=== PATIENT | male | born 1960 | race Caucasian/White ===

== ENCOUNTER 2016-09-30 13:22 | Emergency (ER) | payer OTHER ==
[~2016-09-30] VITALS: Ht 177.8 cm; Wt 80.0 kg
[2016-09-30 13:24] VITALS: BP 132/77; PULSE 92; RESP 20; TEMP 97.8; O2SAT 96
--- NOTE | 2016-09-30 13:29 | PD ---
Physical Exam Time Seen by Provider: 13:25 Narrative 56 y/o male here for evaluation of hallucinations per the . Started 2 days ago. He says insects went into his nose and he reports seeing a man who he did not know sitting in his wifes chair. Vital signs reviewed. Seen at triage desk, awaiting bed placement. Data Data Last Documented VS Vital Signs Date Time Temp Pulse Resp B/P Pulse Ox O2 Delivery O2 Flow Rate FiO2 09/30/16 13:24 97.8 92 20 132/77 96 Room Air [facility] Medical Record Reviewed: Yes Supervised Visit with LYNNE: Cy Hanks September 30, 2016 13:29
[2016-09-30] MEDS ORDERED: OMEP20TA PO (14:02)
[2016-09-30] MEDS ORDERED: GABA100C4 PO (14:02)
[2016-09-30] MEDS ORDERED: HYDR25TA5 PO (14:02)
[2016-09-30] MEDS ORDERED: CYCL1TAB29 PO (14:02)
[2016-09-30] MEDS ORDERED: PRAV40TA2 PO (14:02)
[2016-09-30] MEDS ORDERED: BACL20TA PO (14:02)
[2016-09-30] MEDS ORDERED: TRAM50TA PO (14:02)
[2016-09-30] MEDS ORDERED: PROP20TA3 PO (14:03)
[2016-09-30 14:04] LABS: AUTOMATED NEUTROPHIL # 4.5 TH/MM3 (1.8-7.7); BASOPHIL % 0.4 % (0.0-2.0); EOSINOPHIL # 0.1 TH/MM3 (0-0.4); EOSINOPHIL % 1.7 % (0.0-4.0); HEMATOCRIT 38.7 % (39.0-51.0); LYMPH % 20.5 % (9.0-44.0); LYMPHOCYTE # 1.4 TH/MM3 (1.0-4.8); MEAN CELL VOLUME 95.8 FL (80.0-100.0); MEAN CORPUSCULAR HEMOGLOBIN 32.6 PG (27.0-34.0); MEAN CORPUSCULAR HGB CONC 34.1 % (32.0-36.0); MONO % 13.2 % (0.0-8.0); NEUT % 64.2 % (16.0-70.0); PLATELET COUNT 98 TH/MM3 (150-450); RED BLOOD COUNT 4.04 MIL/MM3 (4.50-5.90); RED CELL DISTRIBUTION WIDTH 15.4 % (11.6-17.2); WHITE BLOOD COUNT 6.9 TH/MM3 (4.0-11.0)
[2016-09-30] MEDS ORDERED: RA BTAB PO (14:05)
[2016-09-30] MEDS ORDERED: VITA100064 PO (14:05)
[2016-09-30 14:07] LABS: HEMO FLAGS AUTO DIFF
[2016-09-30 14:31] LABS: BLOOD, URINE TRACE (NEG); COMMENT (UR) CULTURE INDICATED; CULTURE IF INDICATED CULTURE INDICATED; GLUCOSE,URINE NEG (NEG); HYALINE CAST, URINE 3 /lpf (RARE); KETONE, URINE 10 mg/dL (NEG); MUCUS URINE FEW /lpf (OCC); NITRITE,URINE NEG (NEG); PH, URINE 5.5 (5.0-8.5); SQUAMOUS EPITHELIAL CELL URINE 2 /hpf (0-5); TRANSITIONAL EPI CELLS, URINE 1 /hpf; URINE COLOR YELLOW (YELLW/STRAW)
[2016-09-30 14:36] LABS: AMPHETAMINE, URINE NEG (NEG); BARBITURATES, URINE NEG (NEG); COCAINE, URINE NEG (NEG)
[2016-09-30 14:37] LABS: PLATELET ESTIMATE SMEAR LOW (NORMAL); PLATELET MORPHOLOGY NORMAL (NORMAL); SCAN/DIFF AUTO DIFF CONFIRMED
[2016-09-30 14:47] LABS: ALKALINE PHOSPHATASE 104 U/L (45-117); ALT (GPT) 92 U/L (12-78); ANION GAP 14 MEQ/L (5-15); AST (GOT) 121 U/L (15-37); BICARBONATE 25.6 MEQ/L (21.0-32.0); BLOOD UREA NITROGEN 25 MG/DL (7-18); CHLORIDE 90 MEQ/L (98-107); GLOMERULAR FILTRATION RATE 81 ML/MIN (>89); SODIUM (NA) 130 MEQ/L (136-145); TOTAL BILIRUBIN ADULT 1.1 MG/DL (0.2-1.0)
[2016-09-30 14:48] LABS: ACETAMINOPHEN LESS THAN 2.0 MCG/ML (10.0-30.0)
[2016-09-30 14:49] LABS: POTASSIUM 2.7 MEQ/L (3.5-5.1)
[2016-09-30] MEDS ORDERED: SODIUM CHLOR 0.9% 1000 ML INJ 1,000 ML IV ONE (15:00)
[2016-09-30] MEDS ORDERED: POTASSIUM CHLOR 20 MEQ PREMIX 100 ML IV SCH (15:00)
[2016-09-30] MEDS ORDERED: POTASSIUM CHLORIDE 20 MEQ CONTROLLED RELEASE TAB PO ONE (15:15)
--- NOTE | 2016-09-30 15:17 | PD ---
HPI Chief Complaint: Psychiatric Symptoms Time Seen by Provider: 13:30 Travel History International Travel<30 days: No Contact w/Intl Traveler<30days: No Traveled to known affect area: No History of Present Illness HPI Patient is a 56-year-old male presenting to the emergency department voluntarily due to visual hallucinations. He states that on Monday night patient saw someone sitting in his house was having a conversation with that imaginary person per his . Saw people breaking into his car states that the car was not broken into. Patient also reports seeing bugs, he reports bugs crawling into his "orifices". He reports seeing eggs and when they corey, bugs crawl out that look like spiders. Patient has not taken any new medications, he denies any illicit drug use. His states he has been more anxious recently and is been under more stress at the fear of losing his job coming in to the year. He admitted to occasional alcohol use drinking a few beers a day. PFSH Past Medical History Diminished Hearing: No Hypertension: Yes Musculoskeletal: Yes (DEGERNERATIVE DISC DX) Tetanus Vaccination: < 5 Years Influenza Vaccination: Yes Past Surgical History Surgical History: No Previous Surgery Social History Alcohol Use: Yes (FEW X WEEKLY) Tobacco Use: No Substance Use: No Allergies-Medications (Allergen,Severity, Reaction): Coded Allergies: No Known Allergies (Unverified , 09/30/16) Reported Meds & Prescriptions Reported Meds & Active Scripts Active Reported Vitamin D (Cholecalciferol) 1,000 Unit Tab 1,000 Units PO DAILY B Complex (Vitamin B Complex) 1 Each Tablet 1 Tab PO DAILY Propranolol (Propranolol HCl) 20 Mg Tab 20 Mg PO Q12HR Omeprazole 20 Mg Tab 20 Mg PO BID Baclofen 20 Mg Tab 20 Mg PO TID Flexeril (Cyclobenzaprine HCl) 10 Mg Tab 10 Mg PO HS Hydrochlorothiazide 25 Mg Tab 25 Mg PO DAILY Gabapentin 100 Mg Cap 300 Mg PO TID Pravastatin 40 Mg Tab 40 Mg PO HS Tramadol (Tramadol HCl) 50 Mg Tab 50 Mg PO Q8H PRN Review of Systems Except as stated in HPI: all other systems reviewed are Neg Psychiatric: Positive: Anxiety, Mood Disorder Physical Exam Narrative GENERAL: Well-developed, well-nourished, alert male. Resting comfortably in no acute distress. at bedside. SKIN: Focused skin assessment warm/dry. HEAD: Atraumatic. Normocephalic. EYES: Pupils equal and round. No scleral icterus. No injection or drainage. ENT: No nasal bleeding or discharge. Mucous membranes pink and moist. NECK: Trachea midline. No JVD. CARDIOVASCULAR: Regular rate and rhythm. No murmur appreciated. RESPIRATORY: No accessory muscle use. Clear to auscultation. Breath sounds equal bilaterally. GASTROINTESTINAL: Abdomen soft, non-tender, nondistended. Hepatic and splenic margins not palpable. MUSCULOSKELETAL: No obvious deformities. No clubbing. No cyanosis. No edema. NEUROLOGICAL: Awake and alert. No obvious cranial nerve deficits. Motor grossly within normal limits. Normal speech. PSYCHIATRIC: Appropriate mood and affect; insight and judgment normal. Data Data Last Documented VS Vital Signs Date Time Temp Pulse Resp B/P Pulse Ox O2 Delivery O2 Flow Rate FiO2 09/30/16 13:24 97.8 92 20 132/77 96 Room Air Orders Complete Blood Count With Diff (09/30/16 13:32) Comprehensive Metabolic Panel (09/30/16 13:32) Urinalysis - C+S If Indicated (09/30/16 13:32) Psych Screen (09/30/16 13:32) Drug Screen, Random Urine (09/30/16 13:32) Alcohol (Ethanol) (09/30/16 13:32) Salicylates (Aspirin) (09/30/16 13:32) Tylenol (Acetaminophen) (09/30/16 13:32) Ct Brain W/O Iv Contrast(Rout) (09/30/16 ) Urine Culture (09/30/16 14:20) Sodium Chlor 0.9% 1000 Ml Inj (Ns 1000 M (09/30/16 15:00) Potassium Chloride (Kcl) (09/30/16 15:15) Ammonia (09/30/16 15:42) Mri Brain W&W/O Contrast (09/30/16 ) Mra Brain W/O Contrast (Cow) (09/30/16 ) Gadodiamide Pf Inj (Omniscan Pf Inj) (09/30/16 16:59) Ceftriaxone Inj (Rocephin Inj) (09/30/16 17:15) Labs Laboratory Tests Test 09/30/16 09/30/16 09/30/16 13:50 14:20 15:55 White Blood Count 6.9 TH/MM3 Red Blood Count 4.04 MIL/MM3 Hemoglobin 13.2 GM/DL Hematocrit 38.7 % Mean Corpuscular Volume 95.8 FL Mean Corpuscular Hemoglobin 32.6 PG Mean Corpuscular Hemoglobin 34.1 % Concent Red Cell Distribution Width 15.4 % Platelet Count 98 TH/MM3 Mean Platelet Volume 8.1 FL Neutrophils (%) (Auto) 64.2 % Lymphocytes (%) (Auto) 20.5 % Monocytes (%) (Auto) 13.2 % Eosinophils (%) (Auto) 1.7 % Basophils (%) (Auto) 0.4 % Neutrophils # (Auto) 4.5 TH/MM3 Lymphocytes # (Auto) 1.4 TH/MM3 Monocytes # (Auto) 0.9 TH/MM3 Eosinophils # (Auto) 0.1 TH/MM3 Basophils # (Auto) 0.0 TH/MM3 CBC Comment AUTO DIFF Differential Comment AUTO DIFF CONFIRMED Platelet Estimate LOW Platelet Morphology Comment NORMAL Sodium Level 130 MEQ/L Potassium Level 2.7 MEQ/L Chloride Level 90 MEQ/L Carbon Dioxide Level 25.6 MEQ/L Anion Gap 14 MEQ/L Blood Urea Nitrogen 25 MG/DL Creatinine 0.96 MG/DL Estimat Glomerular Filtration 81 ML/MIN Rate Random Glucose 111 MG/DL Calcium Level 9.3 MG/DL Total Bilirubin 1.1 MG/DL Aspartate Amino Transf 121 U/L (AST/SGOT) Alanine Aminotransferase 92 U/L (ALT/SGPT) Alkaline Phosphatase 104 U/L Total Protein 7.7 GM/DL Albumin 4.3 GM/DL Salicylates Level LESS THAN 1.7 MG/DL Acetaminophen Level LESS THAN 2.0 MCG/ML Ethyl Alcohol Level 36 MG/DL Urine Color YELLOW Urine Turbidity HAZY Urine pH 5.5 Urine Specific [place] 1.021 Urine Protein TRACE mg/dL Urine Glucose (UA) NEG mg/dL Urine Ketones 10 mg/dL Urine Occult Blood TRACE Urine Nitrite NEG Urine Bilirubin NEG Urine Urobilinogen LESS THAN 2.0 MG/DL Urine Leukocyte Esterase MOD Urine RBC 3 /hpf Urine WBC 14 /hpf Urine Squamous Epithelial 2 /hpf Cells Urine Transitional Epithelial 1 /hpf Cells Urine Hyaline Casts 3 /lpf Urine Mucus FEW /lpf Microscopic Urinalysis Comment CULTURE INDICATED Urine Opiates Screen NEG Urine Barbiturates Screen NEG Urine Amphetamines Screen NEG Urine Benzodiazepines Screen POS Urine Cocaine Screen NEG Urine Cannabinoids Screen NEG Ammonia 30 MCMOL/L MDM Medical Decision Making Medical Screen Exam Complete: Yes Emergency Medical Condition: Yes Interpretation(s) Last Impressions Head Magnetic Resonance Angiography 09/30/16 0000 Signed Impressions: Service Date/Time: Friday, September 30, 2016 16:11 - CONCLUSION: No acute [place] vascular findings Micha Campbell MD Head CT 09/30/16 0000 Signed Impressions: Service Date/Time: Friday, September 30, 2016 15:02 - CONCLUSION: 1. Low attenuation left temporal lobe could be infarct or artifact. 2. Otherwise unremarkable CT brain. Theodore Mukherjee MD Brain MRI 09/30/16 0000 Signed Impressions: Service Date/Time: Friday, September 30, 2016 16:11 - CONCLUSION: Normal examination. Micha Campbell MD Laboratory Tests Test 09/30/16 09/30/16 09/30/16 13:50 14:20 15:55 White Blood Count 6.9 TH/MM3 Red Blood Count 4.04 MIL/MM3 Hemoglobin 13.2 GM/DL Hematocrit 38.7 % Mean Corpuscular Volume 95.8 FL Mean Corpuscular Hemoglobin 32.6 PG Mean Corpuscular Hemoglobin 34.1 % Concent Red Cell Distribution Width 15.4 % Platelet Count 98 TH/MM3 Mean Platelet Volume 8.1 FL Neutrophils (%) (Auto) 64.2 % Lymphocytes (%) (Auto) 20.5 % Monocytes (%) (Auto) 13.2 % Eosinophils (%) (Auto) 1.7 % Basophils (%) (Auto) 0.4 % Neutrophils # (Auto) 4.5 TH/MM3 Lymphocytes # (Auto) 1.4 TH/MM3 Monocytes # (Auto) 0.9 TH/MM3 Eosinophils # (Auto) 0.1 TH/MM3 Basophils # (Auto) 0.0 TH/MM3 CBC Comment AUTO DIFF Differential Comment AUTO DIFF CONFIRMED Platelet Estimate LOW Platelet Morphology Comment NORMAL Sodium Level 130 MEQ/L Potassium Level 2.7 MEQ/L Chloride Level 90 MEQ/L Carbon Dioxide Level 25.6 MEQ/L Anion Gap 14 MEQ/L Blood Urea Nitrogen 25 MG/DL Creatinine 0.96 MG/DL Estimat Glomerular Filtration 81 ML/MIN Rate Random Glucose 111 MG/DL Calcium Level 9.3 MG/DL Total Bilirubin 1.1 MG/DL Aspartate Amino Transf 121 U/L (AST/SGOT) Alanine Aminotransferase 92 U/L (ALT/SGPT) Alkaline Phosphatase 104 U/L Total Protein 7.7 GM/DL Albumin 4.3 GM/DL Salicylates Level LESS THAN 1.7 MG/DL Acetaminophen Level LESS THAN 2.0 MCG/ML Ethyl Alcohol Level 36 MG/DL Urine Color YELLOW Urine Turbidity HAZY Urine pH 5.5 Urine Specific [place] 1.021 Urine Protein TRACE mg/dL Urine Glucose (UA) NEG mg/dL Urine Ketones 10 mg/dL Urine Occult Blood TRACE Urine Nitrite NEG Urine Bilirubin NEG Urine Urobilinogen LESS THAN 2.0 MG/DL Urine Leukocyte Esterase MOD Urine RBC 3 /hpf Urine WBC 14 /hpf Urine Squamous Epithelial 2 /hpf Cells Urine Transitional Epithelial 1 /hpf Cells Urine Hyaline Casts 3 /lpf Urine Mucus FEW /lpf Microscopic Urinalysis Comment CULTURE INDICATED Urine Opiates Screen NEG Urine Barbiturates Screen NEG Urine Amphetamines Screen NEG Urine Benzodiazepines Screen POS Urine Cocaine Screen NEG Urine Cannabinoids Screen NEG Ammonia 30 MCMOL/L Vital Signs Date Time Temp Pulse Resp B/P Pulse Ox O2 Delivery O2 Flow Rate FiO2 09/30/16 13:24 97.8 92 20 132/77 96 Room Air Differential Diagnosis Substance abuse versus delirium versus intoxication versus CVA versus other Narrative Course Patient's 56-year-old male presenting to the emergency room for evaluation of hallucinations and has been ongoing for the last 48 hours per his 's report. Labs and imaging were ordered and pending. Initial CT scan showed a low attenuation a left temporal lobe which could be infarct or artifact, MRI and MRA of the brain was ordered. CBC is unremarkable Chemistry with potassium of 2.7. Patient was given 80 mEq by mouth replacement. Sodium 130, patient given 1 L IV fluids. Mild transaminitis noted , ammonia 30, alcohol level is 36 Urine drug screen is positive for benzodiazepines. Urinalysis is indicative of urinary tract infection, reflux culture pending. Patient given Rocephin IV in the emergency department. He'll be provided with a prescription for Keflex for use at home should he be discharged from psych. Patient is likely ingesting more alcohol than he reports. Patient is medically clear for psychiatric evaluation at this time. Diagnosis Primary Impression: Medical clearance for psychiatric admission Additional Impressions: Urinary tract infection Qualified Code: N39.0 - Urinary tract infection without hematuria, site unspecified Alcohol intoxication Qualified Code: F10.920 - Alcohol intoxication, uncomplicated Hallucinations Med/Other Pt SpecificInfo: Prescription(s) given Scripts Cephalexin 500 Mg [id number] Mg PO Q8HR 10 Days Ref 0 Prov:Melody Kim 09/30/16 Condition: Stable Melody Kim September 30, 2016 15:17
--- NOTE | 2016-09-30 15:38 | RADRPT ---
EXAM DATE/TIME: 09/30/2016 15:02 [facility] COMPARISON: No previous studies available for comparison. INDICATIONS : Altered mental status. RADIATION DOSE: 48.66 CTDIvol (mGy) MEDICAL HISTORY : Hypertension. SURGICAL HISTORY : None. ENCOUNTER: Initial ACUITY: 1 day PAIN SCALE: 0/10 LOCATION: cranial TECHNIQUE: Multiple contiguous axial images were obtained of the head. Using automated exposure control and adj ustment of the mA and/or kV according to patient size, radiation dose was kept as low as reasonably a chievable to obtain optimal diagnostic quality images. FINDINGS: CEREBRUM: Low-attenuation left temporal lobe. The ventricles are normal for age. No evidence of midline shift, mass lesion, hemorrhage or acute infarction. No extra-axial fluid collections are seen. POSTERIOR FOSSA: The cerebellum and brainstem are intact. The 4th ventricle is midline. The cerebellopontine angle i s unremarkable. EXTRACRANIAL: The visualized portion of the orbits is intact. SKULL: The calvaria is intact. No evidence of skull fracture. CONCLUSION: 1. Low attenuation left temporal lobe could be infarct or artifact. 2. Otherwise unremarkable CT brain. Theodore Mukherjee MD on September 30, 2016 at 15:35 Board Certified Radiologist. This report was verified electronically.
[2016-09-30] MEDS ORDERED: GADODIAMIDE PF 287 MG/ML 20 ML VIAL (for RAD MRI) IV ONE (16:59)
--- NOTE | 2016-09-30 16:59 | RADRPT ---
EXAM DATE/TIME: 09/30/2016 16:11 [facility] COMPARISON: No previous studies available for comparison. INDICATIONS : Altered mental status. Hallucinations. CONTRAST: 16 cc Omniscan (gadodiamide) IV MEDICAL HISTORY : Hypertension. SURGICAL HISTORY : None. ENCOUNTER: Initial ACUITY: 2 day PAIN SCORE: 0/10 LOCATION: head TECHNIQUE: Multiplanar, multisequence MRI of the brain was performed both prior to and following the administrat ion of paramagnetic contrast. FINDINGS: CEREBRUM: The ventricles are normal for age. No evidence of midline shift, mass lesion, hemorrhage or acute in farction. No extraaxial fluid collections are seen. The pituitary gland and suprasellar cistern are normal in configuration. WHITE MATTER: No significant signal abnormalities are seen in the white matter. POSTERIOR FOSSA: The cerebellum and brainstem are intact. The 4th ventricle is midline. The cerebellopontine angle is unremarkable. The cerebellar tonsils are normal in position. DIFFUSION IMAGING: No focal areas of restricted diffusion are seen. No evidence of acute infarction. EXTRACRANIAL: The visualized portions of the orbits and paranasal sinuses are unremarkable. POST-CONTRAST: No abnormal areas of parenchymal or dural enhancement. No evidence of blood-brain barrier breakdown. CONCLUSION: Normal examination. Micha Campbell MD on September 30, 2016 at 16:55 Board Certified Radiologist. This report was verified electronically.
--- NOTE | 2016-09-30 17:01 | RADRPT ---
EXAM DATE/TIME: 09/30/2016 16:11 [facility] COMPARISON: No previous studies available for comparison. INDICATIONS : Altered mental status. MEDICAL HISTORY : Hypertension. SURGICAL HISTORY : None. ENCOUNTER: Initial ACUITY: 2 day PAIN SCORE: 0/10 LOCATION: head Please note a normal MRA of the brain does not entirely exclude the possibility of a small aneurysm, nor the possibility of distal intracranial vessel disease. TECHNIQUE: 3D time of flight MRA was performed. Source images, multiplanar STS MIP, and 3D volume MIP reconstru ctions were reviewed. FINDINGS: The A1 segment of right anterior cerebral artery is hypoplastic. The left posterior cerebral artery a rises in fashion. There is no evidence of major vessel occlusion or stenosis. No aneurysm or va scular malformation is identified. CONCLUSION: No acute [place] of [place] vascular findings Micha Campbell MD on September 30, 2016 at 16:58 Board Certified Radiologist. This report was verified electronically.
[2016-09-30] MEDS ORDERED: cefTRIAXone INJ 1,000 MG in SODIUM CHLORIDE 0.9% INJ 100 ML IV ONE (17:15)
[2016-09-30] MEDS ORDERED: CEPH500T PO (17:20)
[2016-09-30 18:57] VITALS: BP 113/73; PULSE 108; RESP 18; O2SAT 98
[2016-09-30 23:28] VITALS: BP 117/69; PULSE 101; RESP 16; TEMP 98.7; O2SAT 96
[2016-10-01 04:23] VITALS: BP 124/72; PULSE 96; RESP 16; O2SAT 98
[2016-10-01 06:15] VITALS: BP 118/62; PULSE 89; RESP 16; O2SAT 97
--- NOTE | 2016-10-01 10:42 | PD ---
History of Present Illness Chief Complaint: Psychiatric Symptoms Time Seen by Provider: 10:20 Travel History International Travel<30 Days: No Contact w/Intl Traveler<30days: No Known affected area: No Legal Status Legal Status: Voluntary History of Present Illness: History of Present Illness HPI Patient is a 56-year-old male with no previous psychiatric history who presents to the emergency department voluntarily for a psychiatric evaluation. Documentation from ED provider is as follows " He states that on Monday night he saw someone sitting in his house and was observed having having a conversation with that imaginary person per his . He also saw people breaking into his car states that the car was not broken into. On night he also reports seeing bugs which are like moths with blue eyes that go into his nose, laying eggs and when they corey, bugs crawl out that look like spiders, saw a black family in his garage. EMR is reviewed. No previous psychiatric history. Current toxicology is positive for benzodiazepines which he denies any use of in the last year. BAL of 36 and he admits to having had a drink as well as having " a few beers per day". . Current MRI and CT scans are negative. Positive for hypokalemia as well as for UTI. Patient is seen in main ed. He is sleeping but arouses with verbal prompting. He is oriented x 4, calm and cooperative. Speech is clear and logical, goal directed, normal for tone, rate. There is no farzana or hypomania. Mood is mildly anxious. Acknowledges some worry over possibly being out of a job within the next year. There is no hallucinations reported at this time and he does not appear to be responding to internal stimuli.There is no suicidal or homicidal ideation. He reports that the hallucinations started after he took some Tramadol. Telephone call to his with his verbal permission at [phone]. She confirms that the patient does not have any previous psychiatric history. She does state that he had a problem with alcohol a few years back and that it affected his work but to her knowledge he has not been drinking. She will be picking him up if he is discharged. PFSH Past Medical History Diminished Hearing: No Hypertension: Yes Musculoskeletal: Yes (DEGERNERATIVE DISC DX) Tetanus Vaccination: < 5 Years Influenza Vaccination: Yes Past Surgical History Surgical History: No Previous Surgery Psychiatric History Psychiatric History Hx Psychiatric Treatment: denies History of Inpatient Treatment: No Guns or firearms in home: No Social History male. Lives with his . Works in housekeeping. Hx Alcohol Use: Yes (FEW X WEEKLY) Hx Tobacco Use: No Hx Substance Use: No Substance Use Type: Alcohol Hx of Substance Use Treatment: No Family Psychiatric History Negative Allergies-Medications (Allergen,Severity, Reaction): Coded Allergies: No Known Allergies (Unverified , 09/30/16) Reported Meds & Prescriptions Reported Meds & Active Scripts Active Cephalexin 500 Mg Tab 500 Mg PO Q8HR 10 Days Reported Vitamin D (Cholecalciferol) 1,000 Unit Tab 1,000 Units PO DAILY B Complex (Vitamin B Complex) 1 Each Tablet 1 Tab PO DAILY Propranolol (Propranolol HCl) 20 Mg Tab 20 Mg PO Q12HR Omeprazole 20 Mg Tab 20 Mg PO BID Baclofen 20 Mg Tab 20 Mg PO TID Flexeril (Cyclobenzaprine HCl) 10 Mg Tab 10 Mg PO HS Hydrochlorothiazide 25 Mg Tab 25 Mg PO DAILY Gabapentin 100 Mg Cap 300 Mg PO TID Pravastatin 40 Mg Tab 40 Mg PO HS Tramadol (Tramadol HCl) 50 Mg Tab 50 Mg PO Q8H PRN Review of Systems Except as stated in HPI: all other systems reviewed are Neg Musculoskeletal: COMPLAINS OF: Back pain Psychiatric: COMPLAINS OF: Anxiety MDM Medical Decision Making Medical Record Reviewed: Yes Assessment/Plan 56 year old male on a voluntary status who reports visual hallucinations as well as believing that moths were crawling into his nostrils, seeing people in his garage since . He is not experiencing any of these at this time. The patient has been medically cleared with positive finding of UTI as well as hypokalemia. All other studies are negative. At this time differential diagnosis include delirium. he denies that he has been drinking in excess or using any other substance. . Cleared from psychiatry for discharge. Discussed with his if any increase in symptoms or return of symptoms to return to [facility]. Orders Complete Blood Count With Diff (09/30/16 13:32) Comprehensive Metabolic Panel (09/30/16 13:32) Urinalysis - C+S If Indicated (09/30/16 13:32) Psych Screen (09/30/16 13:32) Drug Screen, Random Urine (09/30/16 13:32) Alcohol (Ethanol) (09/30/16 13:32) Salicylates (Aspirin) (09/30/16 13:32) Tylenol (Acetaminophen) (09/30/16 13:32) Ct Brain W/O Iv Contrast(Rout) (09/30/16 ) Urine Culture (09/30/16 14:20) Sodium Chlor 0.9% 1000 Ml Inj (Ns 1000 M (09/30/16 15:00) Potassium Chloride (Kcl) (09/30/16 15:15) Ammonia (09/30/16 15:42) Mri Brain W&W/O Contrast (09/30/16 ) Mra Brain W/O Contrast (Cow) (09/30/16 ) Gadodiamide Pf Inj (Omniscan Pf Inj) (09/30/16 16:59) Ceftriaxone Inj (Rocephin Inj) (09/30/16 17:15) Diet Regular Basic (09/30/16 Dinner) Results Vital Signs Date Time Temp Pulse Resp B/P Pulse Ox O2 Delivery O2 Flow Rate FiO2 10/01/16 06:15 89 16 118/62 97 Room Air 10/01/16 04:23 96 16 124/72 98 Room Air 09/30/16 23:28 98.7 101 16 117/69 96 09/30/16 18:57 108 18 113/73 98 Room Air 09/30/16 13:24 97.8 92 20 132/77 96 Room Air Laboratory Tests Test 09/30/16 09/30/16 09/30/16 13:50 14:20 15:55 White Blood Count 6.9 Red Blood Count 4.04 Hemoglobin 13.2 Hematocrit 38.7 Mean Corpuscular Volume 95.8 Mean Corpuscular Hemoglobin 32.6 Mean Corpuscular Hemoglobin 34.1 Concent Red Cell Distribution Width 15.4 Platelet Count 98 Mean Platelet Volume 8.1 Neutrophils (%) (Auto) 64.2 Lymphocytes (%) (Auto) 20.5 Monocytes (%) (Auto) 13.2 Eosinophils (%) (Auto) 1.7 Basophils (%) (Auto) 0.4 Neutrophils # (Auto) 4.5 Lymphocytes # (Auto) 1.4 Monocytes # (Auto) 0.9 Eosinophils # (Auto) 0.1 Basophils # (Auto) 0.0 CBC Comment AUTO DIFF Differential Comment AUTO DIFF CONFIRMED Platelet Estimate LOW Platelet Morphology Comment NORMAL Sodium Level 130 Potassium Level 2.7 Chloride Level 90 Carbon Dioxide Level 25.6 Anion Gap 14 Blood Urea Nitrogen 25 Creatinine 0.96 Estimat Glomerular Filtration 81 Rate Random Glucose 111 Calcium Level 9.3 Total Bilirubin 1.1 Aspartate Amino Transf 121 (AST/SGOT) Alanine Aminotransferase 92 (ALT/SGPT) Alkaline Phosphatase 104 Total Protein 7.7 Albumin 4.3 Salicylates Level LESS THAN 1.7 Acetaminophen Level LESS THAN 2.0 Ethyl Alcohol Level 36 Urine Color YELLOW Urine Turbidity HAZY Urine pH 5.5 Urine Specific [place] 1.021 Urine Protein TRACE Urine Glucose (UA) NEG Urine Ketones 10 Urine Occult Blood TRACE Urine Nitrite NEG Urine Bilirubin NEG Urine Urobilinogen LESS THAN 2.0 Urine Leukocyte Esterase MOD Urine RBC 3 Urine WBC 14 Urine Squamous Epithelial 2 Cells Urine Transitional Epithelial 1 Cells Urine Hyaline Casts 3 Urine Mucus FEW Microscopic Urinalysis Comment CULTURE INDICATED Urine Opiates Screen NEG Urine Barbiturates Screen NEG Urine Amphetamines Screen NEG Urine Benzodiazepines Screen POS Urine Cocaine Screen NEG Urine Cannabinoids Screen NEG Ammonia 30 Date/Time Procedure Status Source Growth 09/30/16 14:20 Urine Culture Received Urine Random Urine Pending Diagnosis Primary Impression: Psychosis Additional Impressions: Urinary tract infection Alcohol intoxication Delirium Psychiatrically Cleared: Yes Departure Forms: Tests/Procedures Patient Instructions: General Instructions Med/ Other Pt Specific Info: No Change to Meds Prescriptions Cephalexin 500 Mg [id number] Mg PO Q8HR 10 Days Ref 0 Prov:Melody Kim [facility] 09/30/16 Disposition: 01 DISCHARGE HOME Condition: Stable Problem Qualifiers Primary Impression: Psychosis 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
== END 2016-10-01 12:54 | disposition home or self-care (01) ==
LOC: NEPD 13:22
DX: F23 Brief psychotic disorder (principal); N39.0 Urinary tract infection, site not specified; B96.89 Other specified bacterial agents as the cause of diseases classified elsewhere; F10.120 Alcohol abuse with intoxication, uncomplicated; Y90.1 Blood alcohol level of 20-39 mg/100 ml
CPT/HCPCS: 70450; 70544; 70553; 80053; 80307; 81001; 82140; 85025; 87086; 96361; 96365; 99285; A9579; J0696; J7030